=== PATIENT | male | born 1950 | race Caucasian/White ===

== ENCOUNTER 2017-06-10 08:21 | Outpatient (CLI) | payer OTHER ==
[2017-06-10 10:05] LABS: Hematocrit 46.1 % (42.0-52.0); Mean Platelet Volume 8.7 fL (7.4-10.4); White Blood Cell (WBC) Count 5.9 thou/uL (4.8-10.8)
[2017-06-10 10:13] LABS: PTT 26.1 SEC (22.9-36.1); Prothrombin Time 13.4 SEC (12.0-14.7)
[2017-06-10 10:30] LABS: Anion Gap 9 mmol/L (10-20); BUN (Urea Nitrogen) 17 mg/dL (8.4-25.7); Calc. Creatinine Clearance 0 mL/min (70-130); Calcium 9.3 mg/dL (7.8-10.44); Carbon Dioxide 28 mmol/L (23-31); Chloride 107 mmol/L (98-107); Estimated GFR-MDRD 87
== END 2017-06-10 08:22 | disposition home or self-care (01) ==
LOC: LABBT 08:21
PROVIDERS: ATTEND Neurological Surgery
DX: Z01.812 Encounter for preprocedural laboratory examination (principal); M43.16 Spondylolisthesis, lumbar region; M54.16 Radiculopathy, lumbar region
CPT/HCPCS: 80048; 85027; 85610; 85730

== ENCOUNTER 2017-06-10 08:30 | Inpatient (IN) | payer OTHER, MEDICARE ==
--- NOTE | 2017-06-05 09:35 | HP ---
HISTORY OF PRESENT ILLNESS: Mr. Kelley is a 66-year-old male that presents with low back pain, right buttock pain and right leg numbness and tingling in the lateral thigh. He has a history of chronic back pain since he injured his back in his early 20s. He has had these symptoms for about 6 months and it seems to be getting worse. He has not noticed any radicular symptoms into the right leg. Th e numbness comes on mostly noticeable in the morning when standing in any length of time. The pain is made somewhat better with sitting and with bilateral facet injections that he has had with Dr. Daigle. MRI has been done at [facility] in 2016 as well as flexion, extension x-[facility]; however, we will obtain a new MRI and flexion, extension x-rays at [facility]. REVIEW OF SYSTEMS: Ten-point review of systems completed, is otherwise negative unless stated in th e above HPI. PAST MEDICAL HISTORY: No known medical history. PAST SURGICAL HISTORY: Appendectomy, heart bypass, elbow surgery, rotator cuff repair. HOSPITALIZATIONS: Collision with cow, broken ribs, concussion in 09/2015. FAMILY HISTORY: Father is , diagnosed with nothing, mother is , diagnosed with hear t disease. Siblings are alive. SOCIAL HISTORY: The patient uses smokeless tobacco daily. He is and has children. MEDICATIONS: 1. The patient on CPAP. 2. Taking Omeprazole 40 mg capsule delayed release. 3. Sertraline HCL 50 mg tablet oral. 4. Fish oil 500 mg capsule 1 capsule orally twice a day. 5. Folic acid 1 mg tablet orally. 6. Niacin 100 mg tablet once a day. 7. Fiber tablet orally once a day. 8. Multivitamin for him tablet orally once daily. 9. Naprosyn 250 mg tablet 1 tablet orally twice a day. ALLERGIES: No known drug allergies. PHYSICAL EXAMINATION: HEENT: Normocephalic, atraumatic. Hearing intact. Moist mucous membranes. Trachea midline. No m asses noted. Eyes: Pupils are equal and reactive to light. Extraocular muscles are intact. Scler ae is white, nonicteric. PSYCHIATRIC: Normal mood and affect. CARDIOVASCULAR/CARDIOPULMONARY: No cyanosis or clubbing noted. Intact pedal pulses bilaterally. MUSCULOSKELETAL: Lower extremities, 5/5 strength in bilateral iliopsoas, quadriceps, hamstrings, ri ght tibialis anterior and extensor hallucis longus. Sensory deficits in the right lateral thigh, no ntender to palpation in the midline lumbar spine. RESPIRATORY: The patient has bilateral symmetric chest rise in all lung clark, clear with no wheez ing or crackles. NEUROLOGIC: Awake. Cranial nerves II-XII are grossly intact. Speech is fluent. He answers my que stions appropriately. The patient has normal gait and station. ASSESSMENT: 1. Lumbar radiculopathy. 2. Lumbago with sciatica of the right side. 3. Chronic low back pain. PLAN: Dr. King offered an L5-S1 TLIF to help with his back pain and numbness as well as laminectomy. We discussed the risks, benefits, and possible complications of surgery. The patient fully understands the risks and is willing to proceed with the surgery.
[2017-06-10 09:37] VITALS: BMI 30.7
[2017-06-14] MEDS ORDERED: Thrombin 5000 UNITS/5 ML VIAL ONE (06:18)
[2017-06-14] MEDS ORDERED: Bupivacaine/Epinephrine 0.25% 30 ML VIAL ONE (06:18)
[2017-06-14] MEDS ORDERED: Sodium Chloride 0.9% 30 ML ONE (06:18)
[2017-06-14] MEDS ORDERED: Midazolam HCl 2 mg/2 ml Vial ONE (06:48)
[2017-06-14] MEDS ORDERED: Phenylephrine 10 MG/NS 250 ML 0 ML ONE (06:52)
[2017-06-14] MEDS ORDERED: Albumin 5% 500 ML ONE ×2 (06:52→06:53)
[2017-06-14] MEDS ORDERED: Phenylephrine 10 MG/NS 250 ML 250 ML ONE (06:53)
[2017-06-14] MEDS ORDERED: Fentanyl 250 MCG/5 ML VIAL ONE (07:04)
[2017-06-14] MEDS ORDERED: Ondansetron HCl/PF 4 MG/2 ML Vial ONE (07:09)
[2017-06-14] MEDS ORDERED: ePHEDrine/0.9% NaCl/PF SYRINGE 50 mg/10 ml ONE (07:09)
[2017-06-14] MEDS ORDERED: Propofol 200 MG/20 ML VIAL ONE ×2 (07:09)
[2017-06-14] MEDS ORDERED: Vecuronium 10 MG VIAL ONE (07:09)
[2017-06-14] MEDS ORDERED: Lidocaine 2% PF 10 ML AMP (For Epidural Use) ONE (07:09)
[2017-06-14] MEDS ORDERED: Glycopyrrolate 0.2 MG/ML 5 ML SYRINGE ONE (07:09)
[2017-06-14] MEDS ORDERED: Dexamethasone 20 MG/5 ML VIAL ONE (07:09)
[2017-06-14] MEDS ORDERED: Acetaminophen/Codeine 30-300mg Tablet PO PRN ×2 (12:17)
[2017-06-14] MEDS ORDERED: Morphine Sulfate 2 MG/ML SYRINGE SLOW IVP PRN ×2 (12:17→12:51)
[2017-06-14] MEDS ORDERED: Ondansetron HCl/PF 4 MG/2 ML Vial IVP PRN ×2 (12:17→12:51)
[2017-06-14] MEDS ORDERED: Milk Of Magnesia 30 ML UDCUP PO PRN (12:17)
[2017-06-14] MEDS ORDERED: HYDROmorphone 2 MG/ML VIAL SLOW IVP PRN (12:51)
[2017-06-14] MEDS ORDERED: Promethazine HCl 25 MG/ML VIAL SLOW IVP PRN (12:51)
[2017-06-14] MEDS ORDERED: Promethazine HCl 25 MG/ML VIAL IM PRN (12:51)
[2017-06-14] MEDS ORDERED: Meperidine HCl/PF 25 MG/ML VIAL SLOW IVP PRN (12:51)
--- NOTE | 2017-06-14 14:02 | OP ---
DATE OF PROCEDURE: 06/14/2017 SURGEON: Huey King M.D. DIRECTOR DIETETICS DEPARTMENT: Fletcher Hernandez PA-C. PREOPERATIVE INDICATION: Treat pain, prevent neurological deterioration. PREOPERATIVE DIAGNOSES: Bilateral isthmic spondylolisthesis L5-S1 with foraminal collapse, bilatera l L5 radiculopathies, right worse than left. POSTOPERATIVE DIAGNOSES: Bilateral isthmic spondylolisthesis L5-S1 with foraminal collapse, bilater al L5 radiculopathies, right worse than left. OPERATIVE PROCEDURES: Removal of entire posterior elements of L5 including bilateral abnormal facet s (Lawton type procedure), transforaminal lumbar interbody arthrodesis, placement of intervertebral bi omechanical device, pedicle screw and lizette instrumentation and posterolateral arthrodesis, local mors elized autograft, morselized allograft, all at L5-S1. PREOPERATIVE MEDICATION: Ancef 2 grams IV. DRAIN NUMBER: One. DRAIN TYPE: 10 [place] Paul. OPERATIVE DICTATION: The patient was brought to the operating room. General endotracheal anesthesi a was induced. The patient was positioned prone on the Rainer frame with the appropriate padding f or the chest and hips. A lateral fluoro radiograph was used to plan our incision. The lumbar skin was sterilely prepped and draped. We opened with a 10 blade knife and controlled bleeding with bipo lar cautery and monopolar cautery. We used monopolar cautery to dissect through subcutaneous tissue s to the thoracodorsal fascia. We incised the fascia in the midline and reflected the paraspinal mu scles off the spinous process and lamina of L4, L5, and S1. A lateral fluoro radiograph confirmed t he levels upon, which we were operating. We then carried our dissection over the facet joints at L4 -5 and L5-S1 to expose the transverse process of L5 bilaterally as well as the sacral ala bilaterall y. A self-retaining retractor was then placed. We removed the posterior elements of L5. These we re congenitally abnormal. There were 2 separate laminal processes and not 1 entire lamina. The rig ht and left portion of the lamina were not connected. The facets were abnormal and there was no par s interarticularis on either side. All the posterior elements were removed. This widely opened the foramina, where the L5 nerve roots were compressed between the pedicle of L5 and the top of the sac rum. We chose the right foramen to enter the intervertebral space. We removed disk contents using curettes and rongeurs. We measured the height of the interspace to 10 mm with a bone rasp and prepa red the endplates for grafting. We brought a 10 mm PEEK intervertebral graft into the field. The l aminectomy bone was carefully morselized in the back table after all soft tissue was removed. This morselized bone was added to demineralized bone matrix as our fusion substrate. The substrate was p laced in the center of the PEEK graft and the PEEK graft was advanced into the interspace under radi ographic guidance to the appropriate depth. We turned our attention to pedicle screw instrumentatio n. Using bony anatomic landmarks, palpation of the medial portion of the pedicles, and a lateral fluoro radiograph as a guide, we chose entry points for pedicle screws at L5 and S1 bilaterally. We tappe d our trajectories and probed them. The probe ensured that they were completely encased in bone. W e placed 6.5 mm diameter screws at L5 and S1 bilaterally. A 360-degree image set was generated with our isocentric C-arm confirming an adequate positioning of our pedicle screw instrumentation. We t hen brought rods down into the screw heads. We tightened caps over the rods. We used gentle compre ssive force across the interspace to keep the interbody graft in place. We tightened using torque-c ounter-torque mechanism. We ensured adequate tightness over the rods. We irrigated copiously with bacitracin irrigation. We decorticated the sacral ala bilaterally and the transverse processes of L 5; and over the decorticated bone, we left demineralized bone matrix and morselized autograft as our posterolateral fusion substrate. We tunneled a drain inferiorly through a separate stab incision. We applied vancomycin powder to the wound. We closed the wound in anatomic layers and we applied a sterile dressing. This was a clean case and no contamination.
[2017-06-14] MEDS: Sodium Chloride 0.9% 1,000 ML IV SCH (14:16)
[2017-06-14] MEDS: Cyclobenzaprine 10 MG TAB PO PRN (20:42)
[2017-06-15] MEDS: Sodium Chloride 0.9% 1,000 ML IV SCH (03:28)
[2017-06-15] MEDS: Cyclobenzaprine 10 MG TAB PO PRN (06:33)
[2017-06-15] MEDS ORDERED: Multivit, Therapeutic 1 TAB PO SCH (09:00)
[2017-06-15] MEDS ORDERED: Folic Acid 1 MG TAB PO SCH (09:00)
[2017-06-15] MEDS ORDERED: Loratadine 10 MG TAB PO SCH (09:00)
[2017-06-15 11:13] VITALS: BP 103/60; TEMP 98
--- NOTE | 2017-06-15 13:24 | PRG ---
DATE OF SERVICE: 06/15/2017 SUBJECTIVE: Mr. Kelley is postoperative day #1 from L5-S1 transforaminal lumbar interbody fusion. He is doing very well with no leg pain. He has good strength. His wound is healing well and I have e ducated both he and his regarding postoperative issues. He is already ambulating and wearing h is brace and I have emphasized the importance of wearing this. He is already voiding and again tole rating orals and I would be fine with dismissal today.
== END 2017-06-15 12:30 | disposition home or self-care (01) | DRG 460 ==
LOC: SURG A 06-14 05:50
PROVIDERS: ADMIT Neurological Surgery; ATTEND Neurological Surgery
PROC: 0SG30AJ Fusion of Lumbosacral Joint with Interbody Fusion Device, Posterior Approach, Anterior Column, Open Approach (ICD-10-PCS; principal; 2017-06-14)
DX: M43.17 Spondylolisthesis, lumbosacral region (principal); M48.57XA Collapsed vertebra, not elsewhere classified, lumbosacral region, initial encounter for fracture; Z95.1 Presence of aortocoronary bypass graft; Z72.0 Tobacco use; M48.061 Spinal stenosis, lumbar region without neurogenic claudication; M54.41 Lumbago with sciatica, right side; M54.16 Radiculopathy, lumbar region
CPT/HCPCS: 76001; A4216; C1713; C1768; G8978-GP-CJ; G8979-GP-CJ; G8980-GP-CJ; J1100; J1170; J2001; J2250; J2405; J2704; J3010; J3370; J3490; P9045

== ENCOUNTER 2017-08-15 08:53 | Outpatient (CLI) | payer OTHER ==
--- NOTE | 2017-08-15 10:10 | RAD ---
THREE VIEWS LUMBOSACRAL SPINE: Comparison: None. History: Lumbar radiculopathy. FINDINGS: Three views of the lumbosacral spine shows the patient to be status post posterior fusion of L5 and S 1 with bilateral pedicle screws. There is grade I anterolisthesis of L5 on S1. No perihardware lucenc y is seen. The upper lumbar vertebral bodies demonstrate normal height and alignment without subluxat ion. There are small osteophytes throughout the lumbar spine. IMPRESSION: Post surgical changes at L5-S1 as above. POS: BEL
== END 2017-08-15 08:54 | disposition home or self-care (01) ==
LOC: TBSIIMAG 08:53
PROVIDERS: ATTEND Neurological Surgery
DX: M54.16 Radiculopathy, lumbar region (principal); M54.5 Low back pain; Z98.890 Other specified postprocedural states
CPT/HCPCS: 72100

== ENCOUNTER 2018-11-12 13:50 | Outpatient (CLI) | payer OTHER ==
--- NOTE | 2018-11-12 15:31 | MRI ---
MRI OF THE LEFT KNEE: DATE: 11/12/2018. PROVIDED CLINICAL HISTORY: Left knee pain. FINDINGS: The anterior cruciate ligament, posterior cruciate ligament, medial collateral ligament, and lateral collateral ligamentous complex demonstrate an intact MR appearance, as does the extensor mechanism. There is a complex tear of the medial meniscus, including a displaced bucket-handle component within the intercondylar region of the knee. The medial meniscus demonstrates no evidence for tear. There is articular cartilage irregularity involving the central aspects of the femoral trochlea as we ll as the median ridge, with partial thickness articular cartilage fissuring seen involving the media n ridge. There is a moderate knee joint effusion. No focal concerning regional marrow or muscular signal abnormality is evident. IMPRESSION: 1. Displaced bucket-handle tear of the lateral meniscus. 2. Patellofemoral articular chondrosis. 3. Moderate knee joint effusion. POS: TPC
--- NOTE | 2018-11-12 16:08 | MRI ---
MRI OF THE RIGHT KNEE 11/12/18 PROVIDED CLINICAL HISTORY: Right knee pain. FINDINGS: The anterior cruciate ligament, posterior cruciate ligament, medial collateral ligament and lateral c ollateral ligamentous complex demonstrate an intact MR appearance, as does the extensor mechanism. The medial and lateral menisci demonstrate no evidence for tear. There is articular cartilage loss involving the central aspects of the femoral trochlea inferiorly wi th subjacent subcortical cyst-like change. Articular cartilage appears otherwise preserved. The amount of fluid within the knee joint appears physiologic. No focal concerning regional marrow or muscular signal abnormality is evident. IMPRESSION: 1. No evidence for internal derangement. 2. Trochlear articular chondrosis. POS: TPC
== END 2018-11-12 13:51 | disposition home or self-care (01) ==
LOC: BICMRI 13:50
PROVIDERS: ATTEND Family Medicine
DX: M25.561 Pain in right knee (principal); M25.562 Pain in left knee; S83.252A Bucket-handle tear of lateral meniscus, current injury, left knee, initial encounter; M25.462 Effusion, left knee; M94.8X6 Other specified disorders of cartilage, lower leg

== ENCOUNTER 2021-02-15 15:43 | Outpatient (CLI) | payer OTHER | END 2021-02-15 15:44 | disposition home or self-care (01) | LOC: BICRAD 15:43 | DX: C43.9 Malignant melanoma of skin, unspecified (principal); R91.8 Other nonspecific abnormal finding of lung field | CPT/HCPCS: 71046 ==